=== PATIENT | male | born 1995 | race Caucasian/White ===

== ENCOUNTER 2022-07-31 20:01 | Emergency (ER) | payer OTHER ==
[~2022-07-31] VITALS: Ht 180.3 cm; Wt 111.4 kg
[2022-07-31 20:19] VITALS: BP 121/81; TEMP 98.6
[2022-07-31 21:35] VITALS: PULSE 98
== END 2022-07-31 21:47 | disposition home or self-care (01) ==
LOC: COL.ER 20:01
DX: S60.811A Abrasion of right wrist, initial encounter (principal); V89.2XXA Person injured in unspecified motor-vehicle accident, traffic, initial encounter; Y92.410 Unspecified street and highway as the place of occurrence of the external cause